=== PATIENT | female | born 1985 ===

== ENCOUNTER → 2022-01-02 | Outpatient (CLI) | payer SELFPAY ==
[2022-01-07 16:08] LABS: CHLAMYDIA BY NAA Negative (Negative); GONOCOCCUS BY NAA Negative (Negative); TRICH VAG BY NAA Negative (Negative)
== END | disposition home or self-care (01) ==
LOC: LAB SHORT 15:44 → LAB 15:44
PROVIDERS: Nurse Practitioner Family
DX: Z01.419 Encounter for gynecological examination (general) (routine) without abnormal findings (principal)
CPT/HCPCS: 87491; 87591; 87661; G0123